=== PATIENT | female | born 1995 ===

== ENCOUNTER 2024-06-21 14:17 | Emergency (ER) | payer OTHER ==
[~2024-06-21] VITALS: Ht 162.6 cm; Wt 86.0 kg
[2024-06-21 15:18] VITALS: BP 120/74; PULSE 85; RESP 18; TEMP 97.5; O2SAT 98
== END 2024-06-21 15:44 | disposition home or self-care (01) ==
LOC: EMS 14:19
DX: K12.2 Cellulitis and abscess of mouth (principal); Z48.00 Encounter for change or removal of nonsurgical wound dressing
CPT/HCPCS: 99281; Z7502